=== PATIENT | female | born 1970 ===

== ENCOUNTER 2017-04-13 13:23 | Outpatient (CLI) | payer OTHER ==
--- NOTE | 2017-04-13 16:14 | Ultrasound Report ---
RIGHT DIGITAL DIAGNOSTIC MAMMOGRAM and RIGHT BREAST ULTRASOUND.: 04/13/17 13:23:00 CLINICAL: Abnormal screening mammogram. COMPARISON:03/11/17 screening mammogram from [facility] FINDINGS: Routine views plus exaggerated CC and spot compression MLO views were performed. Partial effacement of an oval partially circumscribed posterior asymmetry just above the nipple line on the MLO view. Measures 1.6 cm. An oval relatively smooth circumscribed asymmetry in the upper breast on MLO spot measures approximately 1 cm. Ultrasound of the right breast (including all four quadrants and the retroareolar area) was performed and demonstrated numerous benign cysts. A benign cyst at 2 o'clock 6 cm from the nipple measures 1.2 x 0.6 x 1.3 cm and correlates with the more posterior asymmetry on the MLO view of the mammogram. An oval heterogeneous solid mass at 12 o'clock 2 cm from the nipple measures 11 x 9 x 4 mm and has benign morphology. It correlates with the more anterior superior asymmetry on the mammogram. Clustered microcysts at 9 o'clock 10 cm from the nipple measured 2.1 x 1.8 x 0.5 cm. Scattered additional smaller benign cysts throughout the breast. IMPRESSION: Benign cysts and a benign 11 mm mass at 12 o'clock 2 cm from the nipple. No suspicious findings. BI-RADS CATEGORY: 2 - - Benign RECOMMENDATION: Routine mammographic screening in one year. ACR BI-RADS MAMMOGRAPHIC CODES: 0 = Needs additional imaging evaluation; 1 = Negative; 2 = Benign; 3 = Probably benign; 4 = Suspicious; 5 = Malignant; 6 = Known biopsy-proven malignancy COMMENT: 1. Dense breast tissue, i.e., adenosis, fibrocystic changes, etc., may obscure an underlying neoplasm. 2. Approximately 10% of cancers are not detected with mammography. 3. A negative mammography report should not delay biopsy if a clinically suspicious mass is present. COMMENT: Patient follow-up letters are generated via our [employer] application.
== END 2017-04-13 13:24 | disposition home or self-care (01) ==
LOC: SPVWC 13:23
DX: N60.01 Solitary cyst of right breast (principal); N63.10 Unspecified lump in the right breast, unspecified quadrant
CPT/HCPCS: 77066